=== PATIENT | female | born 1990 | race Caucasian/White ===

== ENCOUNTER 2016-09-24 15:14 | Emergency (ER) | payer MEDICAID ==
[~2016-09-24] VITALS: Ht 157.5 cm; Wt 89.0 kg
[2016-09-24 15:22] VITALS: Ht 157.5 cm; Wt 89.0 kg
[2016-09-24] MEDS ORDERED: IBUP-1542 PO (16:06)
[2016-09-24] MEDS ORDERED: ALBU8.5H3 INH (16:06)
--- NOTE | 2016-09-24 16:10 | ERD ---
ER Documentation Chief Complaint Date/Time DATE: 09/24/16 TIME: 16:09 Chief Complaint COUGH AND COLDS X 3 DAYS HPI 26-year-old woman presents with cough, nasal congestion, rhinorrhea 3 days. She denies fevers or chills, no vomiting or diarrhea, no rash, no dysuria, no complaints of chest pain or shortness of breath. Her son who she lives with has similar symptoms. She has had no recent travel. ROS All systems reviewed and are negative except as per history of present illness. Medications Home Meds Active Scripts Albuterol Sulfate* (Proair HFA*) 8.5 Gm Hfa.aer.ad, 2 PUFF INH Q6H Y for COUGH, #1 INHALER Prov:CHINYERE HOWELL MD 09/24/16 Ibuprofen* (Ibuprofen*) 600 Mg Tablet, 600 MG PO Q8 for PAIN AND/OR INFLAMMATION , #30 TAB Prov:CHINYERE HOWELL MD 09/24/16 Allergies Allergies: Coded Allergies: No Known Drug Allergies (Verified Allergy, Unknown, 08/16/14) PMhx/Soc None History of Surgery: No Anesthesia Reaction: No Hx Neurological Disorder: No Hx Respiratory Disorders: No Hx Cardiac Disorders: No Hx Psychiatric Problems: No Hx Miscellaneous Medical Probl: No Hx Alcohol Use: No Hx Substance Use: No Hx Tobacco Use: No Smoking Status: Never smoker FmHx Family History: No diabetes Physical Exam Vitals Vital Signs Date Time Temp Pulse Resp B/P Pulse Ox O2 Delivery O2 Flow Rate FiO2 09/24/16 15:22 98.2 71 18 120/55 99 Physical Exam GENERAL: Well-developed, well-nourished, well-hydrated, in no apparent distress , looks nontoxic in appearance HEENT: Moist mucous membranes, positive nasal congestion and rhinorrhea, pink conjunctiva, no cervical spine tenderness or step-off deformities, no goiter, no jaundice or icterus, extraocular movements intact without pain. No submandibular induration, and no pharyngeal erythema NEURO: Alert and oriented 3, cranial nerves II through XII intact bilaterally, pupils equal round reactive to light, no focal deficits or facial asymmetry, sensation intact distally Strength 5/5 in upper and lower extremities bilaterally CARDIAC: Regular rate and rhythm, no murmurs rubs or gallops LUNGS: Clear bilaterally no wheezing crackles or stridor ABDOMEN: Soft nontender, no guarding, no rigidity, no rebound, no psoas sign no obturator sign. Normoactive bowel sounds SKIN: Warm and dry to touch, no abrasions, contusions, or hematomas, no lacerations, no ecchymosis, no target lesions, and without ulcers EXTREMITIES: No clubbing cyanosis or edema, calves are bilaterally symmetrical, no Homans sign, no popliteal cord sign. Distal pulses equal and bilateral PSYCH: Normal affect without agitation or irritability Procedures/MDM Reassurance was provided. Differential diagnoses considered, included but not limited to acute coronary syndrome, pulmonary embolism, aortic dissection, abdominal aortic aneurysm, sepsis, stroke, meningitis, encephalitis, pneumonia, appendicitis, cholecystitis , bowel obstruction, pyelonephritis, nephrolithiasis, cystitis, as well as metabolic, hematologic, and electrolyte abnormalities. As well as abscess, cellulitis, fractures, and dislocations. Patient feels much better at this time, and vital signs are normal, symptoms have improved. I did give strict instructions to return to the ED if symptoms continue or worsen, patient will otherwise follow-up with primary care physician. Patient understood instructions and agreed to plan. Departure Diagnosis: Primary Impression: URI, acute Condition: Good Patient Instructions: Uri, Viral, No Abx (Adult) CHINYERE HOWELL MD Sep 24, 2016 16:09
== END 2016-09-24 16:26 | disposition home or self-care (01) ==
LOC: FTE 15:14
DX: J06.9 Acute upper respiratory infection, unspecified (principal)
CPT/HCPCS: 99283

== ENCOUNTER 2017-05-13 17:05 | Outpatient (CLI) | payer MEDICAID ==
[~2017-05-13] VITALS: Ht 157.5 cm; Wt 96.2 kg
[~2017-05-13 17:05] MED LIST: ALBU8.5H3 INH; IBUP-1542 PO
[2017-05-13 17:24] VITALS: Ht 157.5 cm; Wt 96.2 kg
[2017-05-13 17:25] VITALS: BP 129/74; PULSE 97; RESP 16
[2017-05-14] MEDS ORDERED: PRENAT PO (15:20)
[2017-05-14] MEDS ORDERED: FER325 PO (15:20)
== END 2017-05-13 18:41 | disposition home or self-care (01) ==
LOC: L-D 17:05 → DIB 17:05
PROVIDERS: ATTEND Obstetrics & Gynecology
DX: Z02.9 Encounter for administrative examinations, unspecified (principal)
CPT/HCPCS: G0463

== ENCOUNTER 2017-05-14 14:01 | Inpatient (IN) | payer MEDICAID ==
[~2017-05-14] VITALS: Ht 157.5 cm; Wt 95.2 kg
[2017-05-14 14:32] VITALS: Ht 157.5 cm; Wt 95.2 kg
[2017-05-14] MEDS: LACTATED RINGER'S 1,000 ML IV SCH ×2 (14:45→18:03)
[2017-05-14 15:07] VITALS: BP 143/80; PULSE 86; RESP 20
[2017-05-14] MEDS ORDERED: LACTATED RINGER'S 1,000 ML IV PRN (15:10)
[2017-05-14] MEDS ORDERED: BUTORPHANOL 2 MG INJ ONE (15:18)
[2017-05-14] MEDS ORDERED: FER325 PO (15:20)
[2017-05-14] MEDS ORDERED: PRENAT PO (15:20)
[2017-05-14] MEDS ORDERED: LACTATED RINGER'S 1,000 ML IV ONE (15:21)
[2017-05-14 15:30] LABS: BASOPHILS % 0.2 % (0.0-2.0); EOSINOPHILS % 0.3 % (0.0-7.0); HEMATOCRIT 34.8 % (37.0-47.0); HEMOGLOBIN 11.8 g/dl (12.0-16.0); LYMPHOCYTES # 2.1 10^3/ul (0.8-2.9); LYMPHOCYTES % 15.9 % (15.0-51.0); MEAN CORPUSCULAR HEMOGLOBIN 29.2 pg (29.0-33.0); MEAN CORPUSCULAR HGB CONC 33.9 g/dl (32.0-37.0); MEAN CORPUSCULAR VOLUME 86.1 fl (82.0-101.0); MEAN PLATELET VOLUME 11.5 fl (7.4-10.4); MONOCYTES % 7.2 % (0.0-11.0); NEUTROPHILS % 75.6 % (39.0-77.0); PLATELET COUNT 228 10^3/UL (140-415); RED BLOOD COUNT 4.04 10^6/ul (4.20-5.40); WHITE BLOOD COUNT 13.4 10^3/ul (4.8-10.8)
[2017-05-14] MEDS ORDERED: CARBOPROST 250 MCG INJ IM PRN ×2 (15:30→23:00)
[2017-05-14] MEDS ORDERED: morphine 2 MG INJ IV PRN (15:30)
[2017-05-14] MEDS ORDERED: OXYTOCIN 30 UNITS/LR 500 ML IV PRN ×2 (15:30→23:00)
[2017-05-14] MEDS ORDERED: NALOXONE (0.4 MG/ML) INJ IV PRN (15:30)
[2017-05-14] MEDS ORDERED: morphine 4 MG/ML VIAL IV PRN (15:30)
[2017-05-14] MEDS ORDERED: KETOROLAC 30 MG INJ IV PRN (15:30)
[2017-05-14] MEDS ORDERED: LIDOCAINE 1% (MPF) 30 ML INJ INJ PRN (15:30)
[2017-05-14] MEDS ORDERED: ONDANSETRON 4 MG INJ IV ONE (15:30)
[2017-05-14] MEDS ORDERED: METHYLERGONOVINE 0.2 MG INJ IM PRN (15:30)
[2017-05-14] MEDS ORDERED: NALBUPHINE HCL (10 MG/1 ML) INJ IV PRN (15:30)
[2017-05-14] MEDS ORDERED: MISOPROSTOL 200 MCG TAB PR PRN ×2 (15:30→23:00)
[2017-05-14] MEDS ORDERED: TRIMETHOBENZAMIDE 100 MG/ML VIAL IM PRN (15:30)
[2017-05-14] MEDS ORDERED: OXYTOCIN 30 UNITS/LR 500 ML IV SCH ×2 (15:30)
[2017-05-14] MEDS ORDERED: DIPHENHYDRAMINE 50 MG INJ IV PRN (15:30)
[2017-05-14] MEDS ORDERED: IBUPROFEN 600 MG TAB PO PRN (15:30)
[2017-05-14] MEDS ORDERED: BUTORPHANOL 2 MG INJ IV PRN (15:30)
[2017-05-14] MEDS ORDERED: FENTAnyl 2MCG/ML-ROPIV 0.2% 100 ML BAG EPI SCH (15:30)
[2017-05-14] MEDS ORDERED: ONDANSETRON 4 MG INJ IV PRN ×2 (15:30→23:00)
[2017-05-14] MEDS ORDERED: CITRIC ACID/NA CITRATE 30 ML CUP PO ONE (15:30)
[2017-05-14 15:34] LABS: INR 0.86; PROTIME 11.7 Sec (12.2-14.2); PT RATIO 0.9
[2017-05-14 15:35] LABS: PARTIAL THROMBOPLASTIN TIME 27.4 Sec (25.0-35.0)
--- NOTE | 2017-05-14 17:24 | TRIAGE ---
OB Triage Datetime Report Generated by CPN: 05/14/2017 17:23 Datetime: 05/14/2017 16:45 Vaginal Exam Dilatation (cms): 5.5 Effacement (%): 70 Station: -2 Exam By: ELIJAH RN Membrane Status: Bulging Vaginal Bleeding: None Cervix, Consistency: Moderate Cervix, Position: Midposition Presentation 'A': Cephalic Lie 'A': Longitudinal Datetime: 05/14/2017 16:30 Stage of : Labor Maternal Assessment Level of Consciousness: Fully Conscious Headache: Denies Nausea/Vomiting: Denies RUQ Epigastric Pain: Denies Labor Evaluation Frequency: 3-4 Monitor Mode: External Duration (sec)2399: 50-80 Quality: Strong Resting Tone Shonto: Relaxed Heart Rate FHR Baseline Rate: 155 Monitor Mode: External US Variability: Moderate 6-25 bpm Accelerations: 15X15 Decelerations: None Category: Category I Pain Presence: Intermittent Pain Type: Contraction Pain Location: Abdomen Pain Goal: 3 Pain Relief Measures: Comfort Measures Membrane Status: Intact Datetime: 05/14/2017 15:55 Stage of : Labor Maternal Assessment Level of Consciousness: Fully Conscious Headache: Denies Nausea/Vomiting: Denies RUQ Epigastric Pain: Denies Labor Evaluation Frequency: 2-3 Monitor Mode: External Duration (sec)2399: 50-80 Quality: Strong Resting Tone Shonto: Relaxed Heart Rate FHR Baseline Rate: 155 Monitor Mode: External US Variability: Moderate 6-25 bpm Accelerations: 15X15 Decelerations: None Category: Category I Pain Assessment Pain Scale: 8 Pain Presence: Intermittent Pain Type: Contraction Pain Location: Abdomen Pain Goal: 3 Pain Relief Measures: Comfort Measures Membrane Status: Intact Datetime: 05/14/2017 15:21 Stage of : Labor Datetime: 05/14/2017 15:07 Stage of : Labor Maternal Assessment Level of Consciousness: Fully Conscious Headache: Denies Nausea/Vomiting: Denies RUQ Epigastric Pain: Denies Labor Evaluation Frequency: 4-6 Monitor Mode: External Duration (sec)2399: 50-80 Quality: Strong Resting Tone Shonto: Relaxed Heart Rate FHR Baseline Rate: 145 Monitor Mode: External US Variability: Moderate 6-25 bpm Accelerations: 15X15 Decelerations: None Category: Category I Pain Assessment Pain Scale: 7 Pain Presence: Intermittent Pain Type: Contraction Pain Location: Abdomen Pain Goal: 3 Pain Relief Measures: Comfort Measures Membrane Status: Intact Datetime: 05/14/2017 14:30 Stage of : Labor Assessment Type: Admission Assessment Vaginal Bleeding: None Maternal Assessment Level of Consciousness: Fully Conscious DTR's/Clonus: DTRs 2+; No Clonus Headache: Denies Blurred Vision: No Respiratory Effort: Unlabored; Regular Rhythm; Equal Expansion Breath Sounds, Left: Clear and Equal Breath Sounds, Right: Clear and Equal Nausea/Vomiting: Denies RUQ Epigastric Pain: Denies Lower Extremities Edema: Bilateral Lower Extremities Degree: None Upper Extremities Edema: Bilateral Upper Extremities Degree: None Facial Edema: None Fall Risk Assessment History of Falling: (0) No Secondary Diagnosis: (0) No Ambulatory Aid: (0) Bedrest/Nurse Assist IV Therapy: (0) No Gait: (0) Normal/Bedrest/Immobile Mental Status: (0) Oriented to Own Ability Fall Score: 0 Fall Risk Score Definition: No Risk: No action required Labor Evaluation Frequency: 4-5 Monitor Mode: External Duration (sec)2399: 50-80 Quality: Strong Resting Tone Shonto: Relaxed Heart Rate FHR Baseline Rate: 145 Monitor Mode: External US Variability: Moderate 6-25 bpm Accelerations: 15X15 Decelerations: None Category: Category I Pain Assessment Pain Scale: 7 Pain Presence: Intermittent Pain Type: Contraction Pain Location: Abdomen Pain Goal: 3 Membrane Status: Intact Datetime: 05/14/2017 14:15 Time of Arrival: 05/14/2017 13:52 EGA: 39.0 Arrived By: Ambulatory Arrived From: Home Chief Complaint: UC Movement: Present Contractions: Regular Time Contractions Began: 05/14/2017 09:00 Rupture of Membranes: Denies Vaginal Discharge: Denies Recent Sexual Intercouse: Denies Abdominal Trauma: Not Applicable Patient Complaints: Contractions Time Provider Notified: 05/14/2017 14:00 Provider Notified: Jack Initial Plan: NST, UC, VE Datetime: 05/14/2017 14:00 Assessment Type: Triage Maternal Assessment Level of Consciousness: Fully Conscious DTR's/Clonus: DTRs 2+; No Clonus Headache: Denies Blurred Vision: No Respiratory Effort: Unlabored; Regular Rhythm; Equal Expansion Breath Sounds, Left: Clear and Equal Breath Sounds, Right: Clear and Equal Nausea/Vomiting: Denies RUQ Epigastric Pain: Denies Lower Extremities Edema: Bilateral Lower Extremities Degree: Trace Upper Extremities Edema: None Degree: None Facial Edema: None Fall Risk Assessment History of Falling: (0) No Secondary Diagnosis: (0) No Ambulatory Aid: (0) Bedrest/Nurse Assist IV Therapy: (0) No Gait: (0) Normal/Bedrest/Immobile Mental Status: (0) Oriented to Own Ability Fall Score: 0 Fall Risk Score Definition: No Risk: No action required Vaginal Exam Dilatation (cms): 3.0 Effacement (%): 80 Station: -2 Exam By: TM Membrane Status: Intact Datetime: 05/14/2017 13:58 Stage of : OB Triage Datetime: 05/14/2017 13:52 Stage of : OB Triage Datetime: 05/13/2017 18:42 Labor Evaluation Frequency: irreg Monitor Mode: External Duration (sec)2399: 50-100 Quality: Mild Pattern: Normal: <= 5 Contractions in 10 Minutes Resting Tone Shonto: Relaxed Heart Rate FHR Baseline Rate: 135 Monitor Mode: External US Variability: Moderate 6-25 bpm Accelerations: 15X15 Decelerations: None Category: Category I Pain Presence: None/Denies Pain Type: N/A Datetime: 05/13/2017 17:59 Pattern: Normal: <= 5 Contractions in 10 Minutes Resting Tone Shonto: Relaxed Contraction Comments: no uc Heart Rate FHR Baseline Rate: 145 Monitor Mode: External US Variability: Moderate 6-25 bpm Accelerations: 15X15 Decelerations: None Category: Category I Pain Presence: None/Denies Pain Type: N/A Datetime: 05/13/2017 17:41 Assessment Type: Triage Maternal Assessment Level of Consciousness: Fully Conscious DTR's/Clonus: DTRs 2+; No Clonus Headache: Denies Blurred Vision: No Respiratory Effort: Unlabored; Regular Rhythm; Equal Expansion Breath Sounds, Left: Clear and Equal Breath Sounds, Right: Clear and Equal Nausea/Vomiting: Denies RUQ Epigastric Pain: Denies Lower Extremities Edema: None Degree: None Facial Edema: None Fall Risk Assessment History of Falling: (0) No Secondary Diagnosis: (0) No Ambulatory Aid: (0) Bedrest/Nurse Assist IV Therapy: (0) No Gait: (0) Normal/Bedrest/Immobile Mental Status: (0) Oriented to Own Ability Fall Score: 0 Fall Risk Score Definition: No Risk: No action required Datetime: 05/13/2017 17:18 Time of Arrival: 05/13/2017 16:30 EGA: 38.6 Arrived By: Ambulatory Arrived From: Office Chief Complaint: FROM NST FOR EXTENDED MONITORING FOR QUESTIONABLE NST Movement: Present Contractions: Denies/Absent Rupture of Membranes: Denies Vaginal Bleeding: None Vaginal Discharge: Denies Recent Sexual Intercouse: Denies Abdominal Trauma: Not Applicable Patient Complaints: None Time Provider Notified: 05/13/2017 17:44 Provider Notified: Initial Plan: NST AND CALL
--- NOTE | 2017-05-14 19:11 | HP ---
Date/Time of Note Date/Time of Note DATE: 05/14/17 TIME: 19:06 OB - History Hx of Present Free Text/Dictation May 14 2017 Chief Complaint: labor pain, progressed from 3-5 in about one hour : 3 Para: 2 Care: Good Care Past Family/Social History * Past Medical, Surgical, Family and Obstetric Histories reviewed from chart. OB Admission Exam Vital Signs Vital Signs Vital Signs Date Time Temp Pulse Resp B/P Pulse Ox O2 Delivery O2 Flow Rate FiO2 05/14/17 15:07 98.6 86 20 143/80 97 Room Air Physical Exam HEENT: WNL Lungs: Clear Abdomen: WNL Extremities: Edema (Plus symmetric lower extremity edema) Cervical Dilatation: 3cm Effacement: 75% Station: -2 Membranes: Intact Heart Rate: 140's Accelerations: Accelerations Present Decelerations: Early Decelerations Varibility: Moderate Contractions on Admission: < 5 Minutes Apart Intensity: Moderate Last 72 hours Lab Results CBC & BMP 05/14/17 14:45 OB Assessment/Plan Other Assessment: IUP at 39 weeks Active labor GBS negative Category 1 tracing Transient occasional elevated blood pressures in the range of 140s 150s over 70s -80s. Patient is asymptomatic.If continues to have elevated BP, consider PIH labs Continue to watch closely Anticipate VARUN CANTRELL MD May 14, 2017 19:11
--- NOTE | 2017-05-14 19:31 | LDN ---
Date/Time of Note Date/Time of Note DATE: 05/14/17 TIME: 19:29 Delivery Summary 05/14/2017 Weeks of Gestation 39 weeks Placenta Delivered: Spontaneously Meconium: none Episiotomy: No Perineal laceration: 1 Laceration repair: first degree perineal laceration repaired using 3-0 chromic Anesthesia type: Epidural Estimated blood loss: 200 Sponge & Needle done & correct: Yes All needle counts correct: Yes Any foreign bodies felt in the: No Problems: Infant Delivery Information Sex Sex: male Apgars 1 Minute: 8 5 Minute: 9 Suctioning Nose & mouth suctioned at zina: Yes Umbilical Cord Umbilical cord with: 3 Vessels Cord presentations: nuchal cord Nuchal cord present X: 1 Cord Blood was obtained: Yes Mother & Baby Disposition Disposition Tight nuchal cord at the time of delivery, released. Mom & Baby to Maternity; Good: Yes Baby to NICU: No VARUN CANTRELL MD May 14, 2017 19:31
[2017-05-14 22:10] VITALS: BP 140/76; PULSE 101; RESP 20
[2017-05-14] MEDS ORDERED: morphine 10 MG INJ SC PRN (23:00)
[2017-05-14] MEDS ORDERED: WITCH HAZEL/GLYCERIN PAD PR PRN (23:00)
[2017-05-14] MEDS ORDERED: ALBUTEROL HFA 8 GM INHALER INH PRN ×2 (23:00→23:30)
[2017-05-14] MEDS ORDERED: ZOLPIDEM 5 MG TAB PO PRN (23:00)
[2017-05-14] MEDS ORDERED: ACETAMINOPHEN 325 MG TAB PO PRN (23:00)
[2017-05-14] MEDS ORDERED: DIPHENHYDRAMINE 25 MG CAP PO PRN (23:00)
[2017-05-14] MEDS ORDERED: IBUPROFEN 600 MG TAB PO SCH (23:00)
[2017-05-14] MEDS ORDERED: LANOLIN 7 GM TUBE TOP PRN (23:00)
[2017-05-14] MEDS ORDERED: HYDROCODONE/APAP (5/325) TAB PO PRN (23:00)
[2017-05-14] MEDS ORDERED: ALBUTEROL 18 GM INHALER INH PRN (23:30)
[2017-05-14] MEDS: IBUPROFEN 600 MG TAB PO SCH (23:39)
[2017-05-14] MEDS: LACTATED RINGER'S 1,000 ML IV* SCH (23:43)
[2017-05-15 00:30] VITALS: BP 124/65; PULSE 101; RESP 18
[2017-05-15 04:00] VITALS: BP 103/69; PULSE 87; RESP 18
[2017-05-15] MEDS: IBUPROFEN 600 MG TAB PO SCH ×4 (05:56→23:45)
[2017-05-15] MEDS: LACTATED RINGER'S 1,000 ML IV* SCH (06:55)
[2017-05-15 08:20] VITALS: BP 111/63; PULSE 86; RESP 18
[2017-05-15] MEDS: PRENATAL VITAMIN PO SCH (09:08)
[2017-05-15] MEDS: SENNA/DOCUSATE NA (8.6MG/50MG) TAB PO SCH ×2 (09:08→20:58)
[2017-05-15] MEDS: FERROUS SULFATE (EC) 325 MG TAB PO SCH (09:08)
[2017-05-15 10:47] LABS: HEMATOCRIT 36.1 % (37.0-47.0); HEMOGLOBIN 11.7 g/dl (12.0-16.0)
[2017-05-15] MEDS ORDERED: BENZOCAINE 20% 56 ML SPRAY TOP PRN (11:00)
[2017-05-15 12:09] VITALS: BP 112/59; PULSE 84; RESP 18
--- NOTE | 2017-05-15 13:02 | PN ---
Date/Time of Note Date/Time of Note DATE: 05/15/17 TIME: 13:01 OB Subjective Subjective Subjective Post normal vaginal delivery day 1 Afebrile Vital signs are stable Abdomen soft Uterus firm Lochia normal Extremity normal SONNY GARCÍA MD May 15, 2017 13:02
[2017-05-15 16:15] VITALS: BP 103/55; PULSE 76; RESP 18
[2017-05-15 20:30] VITALS: BP 109/56; PULSE 81; RESP 18
[2017-05-16 04:11] VITALS: BP 107/52; PULSE 70; RESP 18
[2017-05-16] MEDS: IBUPROFEN 600 MG TAB PO SCH ×2 (05:34→13:04)
[2017-05-16 08:00] VITALS: BP 111/69; PULSE 60; RESP 19
[2017-05-16] MEDS ORDERED: VARICELLA VACCINE LIVE/PF 1,350 UNIT/0.5 ML ML SC* ONE (09:00)
[2017-05-16] MEDS ORDERED: DIPHTH/TET/ACEL PERTUSS (ADULT) 0.5 ML VIAL IM* ONE (09:00)
[2017-05-16] MEDS ORDERED: MEASLES,MUMPS,RUBELLA VACCINE INJ SC* ONE (09:00)
[2017-05-16] MEDS: PRENATAL VITAMIN PO SCH (09:15)
[2017-05-16] MEDS: FERROUS SULFATE (EC) 325 MG TAB PO SCH (09:15)
[2017-05-16] MEDS: SENNA/DOCUSATE NA (8.6MG/50MG) TAB PO SCH (09:15)
--- NOTE | 2017-05-16 11:04 | DS ---
Date/Time of Note Date/Time of Note DATE: 05/16/17 TIME: 11:00 Obstetrical Discharge Record Final Diagnosis Final Diagnosis: Term delivered Vaginal Delivery Obstetrical Delivery: Spontaneous Condition on Discharge Physical Assessment Last Vitals: Post day 2 Doing Well Afebrile Ambulatory Chest Clear Breasts are soft , Nipples are intact Abdomen is soft Fundus is firm Moderate amount of lochia Incision is clean ,No evidence of infection No calf tenderness No ankle edema New born is doing well, Breast feeding Voiding: Yes Bowel Movement: Yes Breast: Soft, non-tender Fundus: Firm Episiotomy: .Perineal laceration is healing well no evidence of infection Current Medications Medications (Trade) Dose Ordered Sig/Jesus Route PRN Reason Start Time Stop Time Status Last Admin Dose Admin Lactated Ringer's (Lr) 1,000 ml @ 125 mls/hr Q8H IV 05/14/17 15:10 05/14/17 22:59 DC 05/14/17 18:03 Butorphanol Tartrate (Stadol) 2 mg Q2H PRN IV PAIN 05/14/17 15:30 05/14/17 22:59 DC 05/14/17 15:07 Lidocaine 30 ml 30 ml ONCE PRN INJ EPISIOTOMY/TEARING 05/14/17 15:30 05/14/17 22:59 DC Oxytocin/Lactated Ringer's 500 ml @ 125 mls/hr ONCE -MAY REPEAT X1 IV 05/14/17 15:30 05/14/17 22:59 DC 05/14/17 19:36 Oxytocin/Lactated Ringer's 500 ml @ 125 mls/hr ONCE IV 05/14/17 15:30 05/14/17 22:59 DC 05/14/17 19:49 Ibuprofen 600 mg 600 mg ONCE PRN PO Mild Pain (Pain Score 1-3) 05/14/17 15:30 05/14/17 22:59 DC Lactated Ringer's 1,000 ml @ 2,000 mls/hr Q30M PRN IV PRE-EPIDURAL BOLUS 05/14/17 15:10 05/14/17 22:59 DC Oxytocin/Lactated Ringer's 500 ml @ 0 mls/hr ONCE PRN IV For Hemorrhage Management 05/14/17 15:30 05/14/17 22:59 DC Methylergonovine Maleate (Methergine) 0.2 mg ONCE PRN IM VAGINAL BLEEDING 05/14/17 15:30 05/14/17 22:59 DC Carboprost Tromethamine (Hemabate) 250 mcg ONCE PRN IM VAGINAL BLEEDING 05/14/17 15:30 05/14/17 22:59 DC Misoprostol (Cytotec) 1,000 mcg ONCE PRN [place] VAGINAL BLEEDING 05/14/17 15:30 05/14/17 22:59 DC Butorphanol Tartrate 2 mg 2 mg STK-MED ONCE .ROUTE 05/14/17 15:18 05/14/17 15:19 DC Lactated Ringer's (Lr) 1,000 ml @ 1,000 mls/hr Q1H ONCE IV 05/14/17 15:21 05/14/17 16:20 DC 05/14/17 16:49 Ondansetron HCl (Zofran Inj) 4 mg pre-procedure ONCE IV 05/14/17 15:30 05/14/17 15:49 DC 05/14/17 16:00 Citric Acid/ Sodium Citrate (Bicitra) 30 ml PRE-OP ONCE PO 05/14/17 15:30 05/14/17 15:48 DC 05/14/17 15:59 Naloxone HCl (Narcan) 0.1 mg Q2M PRN IV FOR RESP RATE 8 OR LESS 05/14/17 15:30 05/14/17 22:59 DC Ketorolac Tromethamine (Toradol) 30 mg Q6H PRN IV PAIN 05/14/17 15:30 05/14/17 22:59 DC Morphine Sulfate (morphine) 2 mg Q3H PRN IV PAIN LEVEL 1-5 05/14/17 15:30 05/14/17 22:59 DC Morphine Sulfate (morphine) 4 mg Q3H PRN IV PAIN LEVEL 6-10 05/14/17 15:30 05/14/17 22:59 DC Diphenhydramine HCl (Benadryl) 25 mg Q6H PRN IV ITCHING 05/14/17 15:30 05/14/17 22:59 DC Nalbuphine HCl (Nubain) 5 mg ONCE PRN IV ITCHING 05/14/17 15:30 05/14/17 22:59 DC Ondansetron HCl (Zofran Inj) 4 mg Q6H PRN IV NAUSEA AND/OR VOMITING 05/14/17 15:30 05/14/17 22:59 DC Trimethobenzamide HCl (Tigan) 200 mg Q6H PRN IM NAUSEA AND/OR VOMITING 05/14/17 15:30 05/14/17 22:59 DC Fentanyl/ Ropivacaine 100 ml 100 ml EPIDURAL INFUSION EPI 05/14/17 15:30 05/14/17 22:59 DC Lactated Ringer's (Lr) 1,000 ml @ 125 mls/hr Q8H IV* 05/14/17 22:55 05/15/17 07:50 DC 05/14/17 23:43 Morphine Sulfate (morphine) 1 mg Q3 PRN SC PAIN LEVEL 6-10 05/14/17 23:00 Ibuprofen (Motrin) 600 mg Q6 PO 05/15/17 00:00 05/16/17 05:34 Acetaminophen/ Hydrocodone Bitart ([place] (5/325)) 1 tab Q4H PRN PO PAIN LEVEL 1-5 05/14/17 23:00 05/15/17 07:29 Ondansetron HCl (Zofran Inj) 4 mg Q6H PRN IV NAUSEA AND/OR VOMITING 05/14/17 23:00 Diphenhydramine HCl (Benadryl) 25 mg Q6H PRN PO PRURITUS 05/14/17 23:00 Zolpidem Tartrate (Ambien) 5 mg QHS PRN PO INSOMNIA 05/14/17 23:00 Senna/Docusate Sodium (Senokot-S) 1 tab BID PO 05/15/17 09:00 05/16/17 09:15 Witch Yaritza/ Glycerin (Tucks Pads) 1 pad BEDSIDE MEDICATION PRN [place] HEMORRHOID/EPISIOTMY PAIN 05/14/17 23:00 05/14/17 23:39 Lanolin (Wrp-R-Hujatl) 1 applic BEDSIDE MEDICATION PRN TOP BEDSIDE FOR EZEKIEL TO NIPPLES 05/14/17 23:00 05/14/17 23:40 Measles/Mumps/ Rubella Vaccine Live (Mmr Ii Vaccine) 0.5 ml ONCE ONCE SC* 05/16/17 09:00 05/16/17 09:01 DC Diphtheria/ Tetanus/Acell Pertussis (Adacel) 0.5 ml ONCE ONCE IM* 05/16/17 09:00 05/16/17 09:01 DC Varicella Virus Vaccine Live (Varivax Vaccine With Diluent) 1,350 unit ONCE ONCE SC* 05/16/17 09:00 05/16/17 09:01 DC Acetaminophen 650 mg 650 mg Q4H PRN PO ELEVATED TEMPERATURE 05/14/17 23:00 Oxytocin/Lactated Ringer's 500 ml @ 0 mls/hr ONCE PRN IV For Hemorrhage Management 05/14/17 23:00 Carboprost Tromethamine (Hemabate) 250 mcg ONCE PRN IM VAGINAL BLEEDING 05/14/17 23:00 Misoprostol (Cytotec) 1,000 mcg ONCE PRN [place] VAGINAL BLEEDING 05/14/17 23:00 Albuterol (Ventolin Hfa) 2 puff Q6H PRN INH COUGH 05/14/17 23:00 05/14/17 23:23 DC Ferrous Sulfate (Ferrous Sulfate (Ec)) 325 mg DAILY PO 05/15/17 09:00 05/16/17 09:15 Ibuprofen (Motrin) 600 mg Q8 PO 05/14/17 23:00 05/14/17 23:22 DC Prenat Multivit/ [place]/Iron/Folic Ac () 1 tab DAILY PO 05/15/17 09:00 05/16/17 09:15 Albuterol (Ventolin Hfa) 2 puff Q6H RESP THERAPY PRN INH COUGH 05/14/17 23:30 05/14/17 23:30 DC Albuterol (Ventolin Hfa) 2 puff Q6H RESP THERAPY PRN INH COUGH 05/14/17 23:30 Benzocaine (Dermoplast [place]) 1 spray PRN PRN TOP PAIN 05/15/17 11:00 05/15/17 10:53 Calf Tenderness: No Patient Condition: Good DOLORES RYAN MD May 16, 2017 11:04
== END 2017-05-16 16:57 | disposition home or self-care (01) | DRG 775 ==
LOC: OBT 14:01 → L-D 14:02 → OBT 14:15 → L-D 14:26 → PP1 22:27
PROVIDERS: ADMIT Obstetrics & Gynecology; ATTEND Obstetrics & Gynecology
PROC: 10E0XZZ Delivery of Products of Conception, External Approach (ICD-10-PCS; principal; 2017-05-14)
PROC: 0HQ9XZZ Repair Perineum Skin, External Approach (ICD-10-PCS; 2017-05-14)
PROC: 3E033VJ Introduction of Other Hormone into Peripheral Vein, Percutaneous Approach (ICD-10-PCS; 2017-05-14)
DX: O70.0 First degree perineal laceration during delivery (principal); O24.429 Gestational diabetes mellitus in childbirth, unspecified control; O99.02 Anemia complicating childbirth; O69.81X0 Labor and delivery complicated by cord around neck, without compression, not applicable or unspecified; O13.4 Gestational [pregnancy-induced] hypertension without significant proteinuria, complicating childbirth; Z3A.39 39 weeks gestation of pregnancy; Z37.0 Single live birth
CPT/HCPCS: 62319; 85014; 85018; 85025; 85610; 85730; 86592; 86900; 86901; 87340; 90715; 90716; 94760; G0463; J0595; J2405; J2590; J3010; J7120

== ENCOUNTER 2017-12-03 16:23 | Emergency (ER) | END 2017-12-03 19:45 | disposition home or self-care (01) ==

== ENCOUNTER 2018-06-16 00:41 | Emergency (ER) | END 2018-06-16 05:34 | disposition home or self-care (01) ==